=== PATIENT | male | born 1975 | race Caucasian/White ===

== ENCOUNTER 2025-04-20 04:11 | Emergency (ER) | payer BC, SELFPAY ==
[2025-04-20] VITALS (9 sets, daily range): BP systolic 109–147; BP diastolic 65–94; BMI 23.0
[2025-04-20 04:53] LABS: Hematocrit 33.7 % (39.0-52.0); Hemoglobin 10.7 g/dL (13.0-18.0); Mean Corp Hgb Conc. 31.8 g/dL (33.0-37.0); Mean Corpuscular Volume 68.2 fL (80.0-94.0); Nucleated Red Blood Cells % 0 % (-); Platelet Count 339 10^3/uL (130-400); Red Cell Dist. Width 15.9 % (11.5-14.5)
[2025-04-20 05:11] LABS: ALT (SGPT) 15 U/L (0-50); AST (SGOT) 24 U/L (17-59); Albumin 4.7 g/dl (3.5-5.0); Alkaline Phosphatase 45 U/L (38-126); Blood Urea Nitrogen 22 mg/dl (9-20); Calcium 9.6 mg/dl (8.4-10.2); Carbon Dioxide 25 mmol/L (22-30); Chloride 109 mmol/L (98-107); Glucose 94 mg/dl (70-99); Potassium 4.1 mmol/L (3.5-5.1); Sodium 142 mmol/L (135-145); Total Protein 6.8 g/dl (6.3-8.2); eGFR > 60.00
[2025-04-20 05:22] LABS: Troponin I < 0.012 ng/ml
[2025-04-20 08:10] LABS: Troponin I < 0.012 ng/ml
--- NOTE | 2025-04-20 11:16 | ED.GENMED ---
History of Present Illness
General
Chief Complaint: Chest Pain
Source: patient
Exam Limitations: none
Time Seen by Provider: 04/20/25 06:21
Nursing documentation reviewed up to this point in time: agreed with
History of Present Illness
History of Present Illness:
Note:
CHIEF COMPLAINT(S)
Tingling sensation in the arm and a general feeling of unwellness.
HISTORY OF PRESENT ILLNESS
The patient is a 50-year-old male who presented after experiencing a tingling sensation in his arm along with a general feeling of not being well. He reported waking up at approximately 4:00 AM to use the bathroom when he noticed the arm sensation
and measured his blood pressure, which was reportedly high. The patient mentioned that although he has felt similar symptoms before, they were not as pronounced. At the time of the examination, he no longer had any symptoms. He denied having any
significant chest pain but mentioned feeling generally unwell. Symptoms resolved approximately thirty minutes after arrival at the medical facility. The initial blood tests appeared normal, however, an electrocardiogram (ECG) showed some
abnormalities, suggesting possible cardiac strain, warranting further evaluation.
ADDITIONAL HISTORY OBTAINED FROM SOURCES OTHER THAN THE PATIENT
According to the patients spouse, the patient woke at approximately 4:00 AM and experienced arm numbness and a general feeling of malaise, prompting them to seek evaluation.
EXTERNAL RECORDS REVIEWED
The patient mentioned having had an ECG in the past which was noted to be abnormal, leading to a referral for an echocardiogram at [facility]. The echocardiogram reportedly showed some mild regurgitation but was otherwise normal.
CHRONIC MEDICAL CONDITIONS SIGNIFICANTLY AFFECTING CARE
The patient has a history of hypertension for which he is currently taking medication.
PLAN
1. Repeat the electrocardiogram for further assessment of any persistent abnormalities.
2. Repeat blood tests approximately 3 hours after the initial test to further investigate potential cardiac issues.
3. Review the patients past echocardiogram to corroborate any previous findings with current ECG abnormalities.
4. Consider cardiology follow-up if the repeat tests suggest ongoing concerns or abnormalities.
DIFFERENTIAL DIAGNOSIS
The Differential Diagnosis includes, in no particular order and is not limited to:
1. Transient Ischemic Attack (TIA)
2. Hypertension-related symptoms
3. Peripheral Neuropathy
4. Cardiac Arrhythmia
5. Myocardial Ischemia
6. Cervical Radiculopathy
7. Anxiety or Panic Attack
8. Electrolyte Imbalance
9. Stroke
10. Musculoskeletal Strain
Summary. Patient seen for tingling in her arm and chest discomfort. No signs of ACS or PE serial troponins negative repeat EKG improved. Doubt ACS or PE. Patient stable for discharge
Disposition discharge home
Phy Exam
Physical Exam
Physical Exam:
Physical Exam
General: no apparent distress, not acutely ill
Neck: supple. no meningeal signs. normal posterior pharynx
Heart: s1/s2 regular rate and rhythm, no murmur. equal radial
pulses.
HEENT: Pupils equal round reactive to light, EOMI
Lungs: no acute respiratory distress. clear bilaterally
Abdomen: normal bowel sounds. not tender. no CVAT
Neuro: alert and oriented. no focal neurological deficits cranial nerves II through XII intact
Skin: no rash
Psychiatric: well kept. interactive and cooperative
Extremities: no edema. no calf tenderness. negative homans. good distal pulses
Scores
Heart Score for Chest Pain Patients
STEMI patient?: No
History: Slightly or Non-Suspicious
ECG: Nonspecific Repolarization
Age: >45 - <65 years
Risk Factors: 1 or 2 Risk Factors
Troponin: </= Normal Limit
Heart Score for Chest Pain Patients: 3
Heart Score Risk: 2.5% MACE over next 6 weeks
Course
Orders/Labs/Results
Orders:
Orders
04/20/25 04:13
ECG [Electrocardiogram (*1)] Urgent
Reason for Study: Chest Pain
EKG- Treatment ONCE
04/20/25 04:44
Complete Blood Count/With Diff Urgent
Comprehensive Metabolic Panel Urgent
Troponin I Urgent
04/20/25 07:32
Troponin I Urgent
04/20/25 08:39
Electrocardiogram (*1) Urgent
Reason for Study: Chest Pain
EKG- Treatment ONCE
Abnormal Lab Results
04/20/25
04:44
Hgb 10.7 L g/dL
(13.0-18.0)
Hct 33.7 L %
(39.0-52.0)
MCV 68.2 L fL
(80.0-94.0)
MCH 21.7 L pg
(27.0-31.0)
MCHC 31.8 L g/dL
(33.0-37.0)
RDW 15.9 H %
(11.5-14.5)
Absolute Lymphs (auto) 4.7 H 10^3/uL
(1.2-3.4)
Neutrophils % 26.1 L %
(42.2-75.2)
Lymphocytes % 63.5 H %
(20.5-51.1)
Chloride 109 H mmol/L
(98-107)
BUN 22 H mg/dl
(9-20)
04/20/25 04:44
04/20/25 04:44
Vital Signs
Initial and Last Documented VS:
Initial Vital Signs
Temp Pulse Resp BP Pulse Ox
98.2 F 95 16 147/94 99
04/20/25 04:17 04/20/25 04:17 04/20/25 04:17 04/20/25 04:17 04/20/25 04:17
Last Documented Vital Signs
Temp Pulse Resp BP Pulse Ox
98.2 F 89 17 133/85 98
04/20/25 04:17 04/20/25 11:00 04/20/25 11:00 04/20/25 11:00 04/20/25 11:17
*Pulse Oximetry
SaO2: 98
Oxygen Mode of Delivery: Room air
Patient hypoxic: no
*[employer] Interpretation
Rate: normal
Interpretation: normal
Heart Rate: 90
Rhythm: sinus
*Critical Care Note
Total Time (30-74mins, 75-104mins- exclusive of procedures): Not Applicable
Data Reviewed
Further Testing Considered But Not Given:
ct chest not indicated
Patient Management
Social determinants of health affecting care: Living situation and Strong social support
Escalation/DeEscalation of care consider admission/obs:
admit not indicated
ED Attending Note
-
Portions of this chart may have been created with voice recognition software.� Occasional wrong word or��sound alike� substitutions may have occurred due to the inherent limitations of voice recognition software.
Discharge Plan
Departure
Patient Disposition: Home (Routine Discharge)
Date of Disposition: 04/20/25
Time of Disposition: 11:15
Patient with high blood pressure during this ER visit?: No
Condition: Good
Discharge Problem:
Chest pain
Instructions: Chest Pain DCA Follow Up
Prescriptions:
No Action
lisinopril 20 mg Tablet
20 mg PO DAILY
Referrals:
Ede Miller PA-C [Family Provider, Family Practice]
Interventions
Interventions:
*Risk Screen - Suicide Last Done: 04/20/25 06:06
*General Assessment Last Done: 04/20/25 04:53
*Neglect/Abuse Screening Last Done: 04/20/25 04:17
*ED- Fall Risk Assessment Last Done: 04/20/25 04:55
*ED COVID-19 Vaccine History Last Done: 04/20/25 04:55
ED- Cardiac Assessment Last Done: 04/20/25 04:32
Discharge Date and Time
Print Language: LITHUANIAN
== END 2025-04-20 11:40 | disposition home or self-care (01) ==
LOC: EMR 04:11
PROVIDERS: Emergency Medicine; EMERGENCY PHYSICIAN Emergency Medicine; FAMILY PHYSICIAN Physician Assistant Medical
DX: R07.9 Chest pain, unspecified (principal); I10 Essential (primary) hypertension; R20.2 Paresthesia of skin; Z79.899 Other long term (current) drug therapy
CPT/HCPCS: 99284; 80053; 84484; 85025; 93005